=== PATIENT | female | born 1980 | race Two or more races ===

== ENCOUNTER 2022-07-20 08:57 | Emergency (ER) | payer OTHER ==
[~2022-07-20] VITALS: Ht 165.1 cm; Wt 61.2 kg
[2022-07-20 09:12] VITALS: BP 140/96
[2022-07-20] MEDS ORDERED: IBUPROFEN 600 MG TABLET PO ONE (09:30)
[2022-07-20] MEDS ORDERED: ACETAMINOPHEN ES 500 MG TABLET PO ONE (09:30)
--- NOTE | 2022-07-20 10:00 | NUR ---
NO obvious distress reclining in bed- conversing with family.
[2022-07-20] MEDS ORDERED: ACETAMINOPHEN ES 500 MG TABLET ONE (10:15)
[2022-07-20] MEDS ORDERED: IBUPROFEN 600 MG TABLET ONE (10:15)
[2022-07-20] MEDS ORDERED: HYDR-3972 PO (10:46)
[2022-07-20] MEDS ORDERED: IBUP-1953 PO (10:46)
== END 2022-07-20 11:08 | disposition home or self-care (01) ==
LOC: ER 09:14
DX: S22.32XA Fracture of one rib, left side, initial encounter for closed fracture (principal); S00.11XA Contusion of right eyelid and periocular area, initial encounter; Y04.0XXA Assault by unarmed brawl or fight, initial encounter; Y93.89 Activity, other specified; Y92.89 Other specified places as the place of occurrence of the external cause; Y99.8 Other external cause status
CPT/HCPCS: 70450-TC; 70486-TC; 71100-TC